=== PATIENT | female | born 1990 | race Caucasian/White ===

== ENCOUNTER → 2017-08-06 | Outpatient (CLI) | payer OTHER | LOC: FIMAGING 14:28 | PROVIDERS: ATTEND Advanced Practice Midwife | DX: O36.80X0 Pregnancy with inconclusive fetal viability, not applicable or unspecified (principal); Z87.59 Personal history of other complications of pregnancy, childbirth and the puerperium; Z3A.00 Weeks of gestation of pregnancy not specified ==

== ENCOUNTER → 2017-08-13 | Outpatient (CLI) | payer OTHER | LOC: FIMAGING 09:48 | PROVIDERS: ATTEND Advanced Practice Midwife | DX: O36.80X0 Pregnancy with inconclusive fetal viability, not applicable or unspecified (principal); Z3A.01 Less than 8 weeks gestation of pregnancy ==

== ENCOUNTER → 2017-08-21 | Outpatient (CLI) | payer OTHER | LOC: FIMAGING 16:16 | PROVIDERS: ATTEND Advanced Practice Midwife | DX: O03.9 Complete or unspecified spontaneous abortion without complication (principal); N83.292 Other ovarian cyst, left side; Z3A.00 Weeks of gestation of pregnancy not specified ==